=== PATIENT | female | born 1965 | race Caucasian/White ===

== ENCOUNTER 2017-04-08 10:57 | Day surgery (SDC) | payer BC ==
[~2017-04-08 10:57] MED LIST: Lactated Ringers 1,000 ML IV SCH; Sodium Chloride 0.9% 10 ML Syringe FLUSH PRN
[2017-04-08] MEDS ORDERED: fentaNYL 100 MCG/2 ML SDV ONE ×2 (12:12→12:19)
[2017-04-08] MEDS ORDERED: Midazolam 1 MG/ML 2 ML SDV ONE ×2 (12:12→12:19)
[2017-04-08] MEDS ORDERED: Propofol 200 MG/20 ML SDV ONE ×2 (12:13→12:19)
--- NOTE | 2017-04-08 12:15 | PCM.HPR ---
H & P Addendum review - H & P Addendum Review Date of Original H & P: 03/16/17 Date Reviewed: 04/08/17 Time Reviewed: 12:14 Patient was Examined: No Changes
--- NOTE | 2017-04-08 12:45 | PCM.OPNOTE ---
- General Post-Op/Procedure Note Date of Surgery/Procedure: 04/08/17 Operative Procedure(s): Colonoscopy Findings: Normal Pre Op Diagnosis: Colon Screening Post-Op Diagnosis: Same Anesthesia Technique: MAC Primary Surgeon: Samy Zaragoza Anesthesia Provider: Aracelis Gooden Complications: None Condition: Good Free Text/Narrative:: Intake & Output 04/07/17 04/08/17 04/08/17 22:59 06:59 14:59 Intake Total 500 Balance 500
--- NOTE | 2017-04-08 15:40 | OR ---
Date of Procedure: 04/08/2017 PREOPERATIVE DIAGNOSIS: Colon screening. POSTOPERATIVE DIAGNOSIS: Normal colonoscopy. PROCEDURE: Colonoscopy. ANESTHESIA: IV sedation. PROCEDURE IN DETAIL: The patient was brought to the procedure room where she was placed on her left side and an IV sedation administered. Digital rectal exam was performed, which was normal. Colonoscope was inserted and advanced to the level of the cecum without difficulty. Cecal position was confirmed by identifying the appendiceal lumen and the ileocecal valve. The prep was good and surfaces were well visualized. Upon withdrawing the scope, the ascending, transverse, and descending colon were normal in appearance. Sigmoid colon and rectum were normal. Retroflexion was normal. Air was removed and the scope withdrawn. The patient tolerated the procedure well and returned to recovery in stable condition. Recommend routine colon screening in 10 years. BEATRIZ MOROCHO MD /[id number]
[2017-04-08 17:40] VITALS: BP 115/79
== END 2017-04-08 14:24 | disposition home or self-care (01) ==
LOC: LL.SDS 10:57
PROVIDERS: ATTEND Surgery
DX: Z12.11 Encounter for screening for malignant neoplasm of colon (principal); I10 Essential (primary) hypertension; E03.9 Hypothyroidism, unspecified; E55.9 Vitamin D deficiency, unspecified; Z79.899 Other long term (current) drug therapy
CPT/HCPCS: 45378; J2250; J2704; J3010; J7120

== ENCOUNTER 2023-03-23 08:24 | Emergency (ER) | payer BC ==
[2023-03-23 08:43] VITALS: PULSE 76
[2023-03-23] MEDS ORDERED: Acetaminophen/oxyCODONE 325-5 MG Tab PO ONE (08:59)
[2023-03-23] MEDS ORDERED: Cyclobenzaprine 10 MG Tab PO ONE (10:53)
[2023-03-23 11:31] VITALS: BP 126/73
== END 2023-03-23 10:55 | disposition home or self-care (01) ==
LOC: LL.ED 08:24
DX: S42.224A 2-part nondisplaced fracture of surgical neck of right humerus, initial encounter for closed fracture (principal); I10 Essential (primary) hypertension; E03.9 Hypothyroidism, unspecified; Z79.899 Other long term (current) drug therapy; Z90.49 Acquired absence of other specified parts of digestive tract; W19.XXXA Unspecified fall, initial encounter
CPT/HCPCS: 73000; 73020; 73060; 99283; A9270; 99284